=== PATIENT | male | born 1965 | race Caucasian/White ===

== ENCOUNTER → 2017-12-19 14:59 | Outpatient (CLI) | payer OTHER, SELFPAY ==
[2017-12-19 18:00] LABS: Hematocrit 40.9 % (40-54); Mean Corp Hgb Conc 34.2 g/gl (32-36); Mean Corpuscular Hgb 32.2 pg (27.0-32.0); Mean Platelet Vol. 10.4 fl (6.2-12.0); Platelet Count 210 K/mm3 (150-450); RBC Distribution Width CV 11.9 % (11.6-14.6); RBC Distribution Width SD 40.3 fl (35.1-43.9); Red Blood Count 4.35 M/mm3 (4.6-6.2); White Blood Count 6.1 K/mm3 (4.4-11.0)
[2017-12-19 18:05] LABS: Scan Indicated on CBC? Y/N NO
[2017-12-19 18:21] LABS: Vitamin B12 296 pg/mL (211-911)
[2017-12-22 03:07] LABS: QNTFERON TB Ag Minus Nil Value < 0 IU/mL (.); QNTFERON TB Ag Value 0.07 IU/mL (.); QNTFERON TB Mitogen Value > 10.00 IU/mL (.); QNTFERON TB Nil Value 0.08 IU/mL (.)
[2017-12-22 13:40] LABS: QNTIFERON TB Gold Negative (Negative)
== END ==
PROVIDERS: Family Provider Student in an Organized Health Care Education/Training Program; PCP Student in an Organized Health Care Education/Training Program; Visit Provider Internal Medicine Gastroenterology
DX: K50.90 Crohn's disease, unspecified, without complications (principal); Z79.899 Other long term (current) drug therapy
CPT/HCPCS: 36415; 82607; 85027; 86140; 86480

== ENCOUNTER → 2018-09-01 13:56 | Outpatient (CLI) | payer OTHER, SELFPAY ==
[2018-09-01 18:07] LABS: Hematocrit 44.7 % (40-54); Hemoglobin 14.7 g/dl (13.0-16.5); Mean Corp Hgb Conc 32.9 g/gl (32-36); Mean Corpuscular Hgb 30.6 pg (27.0-32.0); Mean Corpuscular Volume 92.9 fL (80-94); Mean Platelet Vol. 10.6 fl (6.2-12.0); Platelet Count 274 K/mm3 (150-450); RBC Distribution Width CV 12.6 % (11.6-14.6); RBC Distribution Width SD 42.5 fl (35.1-43.9); Red Blood Count 4.81 M/mm3 (4.6-6.2); White Blood Count 6.5 K/mm3 (4.4-11.0)
[2018-09-01 18:08] LABS: Scan Indicated on CBC? Y/N NO
[2018-09-01 18:54] LABS: BUN 19 mg/dL (7-18); Creatinine, Serum 1.16 mg/dL (0.70-1.30); Glucose 82 mg/dL (74-106)
[2018-09-01 18:55] LABS: AST(SGOT) 24 U/L (15-37); Alanine Aminotransfer ALT/SGPT 74 U/L (16-61); Albumin, Serum 3.2 g/dL (3.2-5.0); Alkaline Phosphatase 69 U/L (45-117); Anion Gap 5 (5-15); BUN/Creat Ratio 16.4 RATIO (10-20); CRP < 2.90 mg/L (0.0-3.0); Calcium,Total 8.7 mg/dL (8.5-10.1); Chloride 109 mmol/L (98-107); EST Glomerular Filtration Rate 71 mL/min (>60); Est Glom Filt Rate - Afr Amer 85 mL/min (>60); Globulin 3.1 g/dL (2.2-4.2); Potassium 3.9 mmol/L (3.5-5.1); Protein, Total 6.3 g/dL (6.4-8.2); Sodium Level 143 mmol/L (136-145)
== END ==
PROVIDERS: Family Provider Student in an Organized Health Care Education/Training Program; PCP Student in an Organized Health Care Education/Training Program; Referring Provider Internal Medicine Gastroenterology; Visit Provider Internal Medicine Gastroenterology
DX: K50.90 Crohn's disease, unspecified, without complications (principal)
CPT/HCPCS: 36415; 80053; 85027; 86140

== ENCOUNTER 2020-04-24 06:39 | Emergency (ER) | payer BC, SELFPAY ==
[2020-04-24 06:40] VITALS: BP 132/88; PULSE 66; RESP 16; TEMP 36.4; O2SAT 100; BMI 25.4
--- NOTE | 2020-04-24 07:20 | CT_ITS ---
STUDY: CT ABDOMEN AND PELVIS WITHOUT CONTRAST REASON FOR EXAM: Male, 54 years old. RT FLANK PAIN SINCE THIS AM, HX-CROHNS RADIATION DOSAGE (If Supplied By Facility): CTDIvol = ( 6.86 ) mGy, DLP = ( 342.89 ) mGycm TECHNIQUE: Transaxial images were obtained from the dome of the diaphragm to the symphysis pubis without oral contrast, and without intravenous contrast. Sagittal and coronal images were reconstructed. Individualized dose optimization techniques were used for this CT. COMPARISON: None. FINDINGS: The visualized lung bases are unremarkable. The visualized portions of the heart are within normal limits. Normal liver. Normal gallbladder and extrahepatic biliary system. Normal spleen. Normal pancreas. Normal bilateral adrenal glands. There is a 2 mm calcification at the superior pole of the right kidney there is mild hydroureteronephrosis. There is 4 mm calcification at the UVJ (axial image #151 series 2) There is 1 cm hypodense nodule at the superior pole of the left kidney. Normal visualized stomach. Normal small intestine. There are multiple colonic diverticula consistent with diverticulosis. There are surgical sutures at the cecum Normal abdominal aorta. Normal inferior vena cava. Normal retroperitoneum. Normal urinary bladder. Normal abdominal wall. Normal osseous structures. CT/Abdomen/Pelvis without Cont IMPRESSION: 4 mm right UVJ calculus with mild hydronephrosis. 1 cm left kidney nodule. Neoplastic disease is not excluded. Comparison with prior examinations if available or further evaluation with sonography is recommended. Electronically Signed: Bruno Enrique MD at 8:14 EDT Tel , Service support ,
--- NOTE | 2020-04-24 07:26 | ED.VIS.GEN ---
History of Present Illness Chief Complaint: Flank Pain Informant: Patient Onset: Hours Current Severity: Mild Narrative: History of Crohn's disease very stable went to bed feeling fine at 330 this morning developed sudden onset of pain to the right flank radiates slightly to the right side of the abdomen, he has had no vomiting no fever normal bowel bladder habits slight nausea he has had this before related to kidney stones, the past spontaneously, his Crohn's this is been very stable no diarrhea or blood no trauma no other issues Past Medical History - Allergies and Home Meds Allergies/Adverse Reactions: Allergies cefadroxil [From Duricef] Allergy (Verified 04/24/20 06:44) Hives Penicillins Allergy (Verified 04/24/20 06:44) Hives Sulfa (Sulfonamide Antibiotics) Allergy (Verified 04/24/20 06:44) Hives sulfasalazine [From Azulfidine] Allergy (Verified 04/24/20 06:44) Hives Primary Care Physician: Pedro Lee DO [Primary Care Provider] - Past Medical History: - Smoking Status: Light Smoker (<10/day) Review of Systems ROS: - 's disease and kidney stones General: Denies: Chills, Fever, Sweats Eyes: Denies: Visual changes - bilaterally, Diplopia ENT: Denies: Rhinorrhea, Sore throat Cardiovascular: Denies: Chest pain, Palpitations Respiratory: Denies: Dyspnea, Cough, Dyspnea on exertion Gastrointestinal: Reports: -. Denies: Abdominal pain, Nausea, Vomiting, Diarrhea, Melena, Hematochezia Genitourinary: Denies: Dysuria, Hematuria, Frequency Musculoskeletal: Reports: Back pain. Denies: Extremity Pain Skin: Denies: Rash, Wounds Neurological: Denies: Headache, Weakness, Numbness Physical Exam Vital Signs/Narrative: Vital Signs Temp Pulse Resp BP Pulse Ox 04/24/20 06:40 97.6 F L 66 16 132/88 H 100 General: Well nourished, Well developed, No Acute Distress Head: Normocephalic, Atraumatic Eyes: Perrl, EOMI ENT: Moist mucous membranes, No rhinorrhea Neck: Supple, Nontender Cardiovascular: Regular rate, Regular rhythm, No murmurs Respiratory: No distress, CTA bilaterally, Chest nontender Abdomen: Soft, Nontender, Nondistended, Normal bowel sounds Back: Nontender, Normal Inspection, CVA tenderness Extremities: Nontender, No edema Skin: Normal color, No rash Neurological: Alert, Oriented x3, Cranial nerves II-XII grossly intact, Normal Strength, Normal Sensation Psychological: Normal affect, Normal Mood Diagnostic/Tx/Re-eval - Medical Decision Making Patient is walking around the room holding his right upper back is midline backs unremarkable the abdomen soft nontender upper and lower extremities unremarkable he is in no distress except for the above given all the above ED screen evaluation CT pain management ED screening evaluation is generally unremarkable see those results, the UA is pending, on reevaluation he is much improved, his CT scan shows 4 mm obstructing stone with hydronephrosis 1 left renal nodule etiology of that is unclear see that report will need follow-up He is comfortable with discharge home Naprosyn Flomax Campbell as rescue medicine and follow-up with [facility] for all of the above and return for change in symptoms Home stable Right flank pain related to obstructing right renal kidney stone hydronephrosis ED Disposition - Plan for ED Patient: Diagnosis: Renal colic Instructions: ED Renal Stone w Colic Prescriptions: Tamsulosin HCl [Flomax] 0.4 mg PO DAILY #7 cap Prescription Printed Naproxen [Naprosyn] 500 mg PO BID PRN #20 tab Prescription Printed Hydrocodone Bitart/Apap 5-325 [Campbell 5MG-325MG] 1 tab PO Q4H PRN PRN 2 Days #10 tab PRN Reason: Pain Prescription Printed Referrals: Pedro Lee DO [Primary Care Provider] -
[2020-04-24 07:31] LABS: Absolute Lymphocyte Count 1.37 X10^3/uL (0.83-4.51); Absolute Neutrophil Count 12.1 X10^3/uL (2.0-7.7); Basophil# 0.03 X10^3/uL; Basophil% 0.2 % (0-1); Eosinophil# 0.06 X10^3/uL; Eosinophils% 0.4 % (0-5); Hematocrit 45.5 % (40-54); Hemoglobin 14.8 g/dL (13.0-16.5); Lymphocyte # 1.37 X10^3/ul (4.0); Lymphocyte % 9.8 % (19-41); Mean Corp Hgb Conc 32.5 g/dL (32-36); Mean Corpuscular Hgb 30.2 pg (27.0-32.0); Mean Corpuscular Volume 92.9 fL (80-94); Mean Platelet Vol. 10.7 fl (6.2-12.0); Monocyte# 0.37 X10^3/uL; Monocyte% 2.6 % (0-10); NRBC Flagged by Analyzer 0 % (0-5); Neutrophil # 12.11 X10^3/uL (2.7-7.7); Neutrophil % 86.6 % (47-70); Platelet Count 316 K/mm3 (150-450); RBC Distribution Width CV 12.9 % (11.6-14.6)
[2020-04-24] MEDS: Ondansetron 4 MG/2 ML Vial IV (07:32)
[2020-04-24] MEDS: morphine 8 MG/ML Syringe IV (07:32)
[2020-04-24] MEDS: 0.9% Normal Saline 1,000 ML 250 ML IV (07:32)
[2020-04-24] MEDS: Ketorolac 30 MG/ML Syringe IV (07:32)
[2020-04-24 07:36] LABS: Anion Gap 7 (5-15); BUN 16 mg/dL (7-18); Calcium,Total 8.5 mg/dL (8.5-10.1); Chloride 111 mmol/L (98-107); Creatinine, Serum 1.45 mg/dL (0.70-1.30); EST Glomerular Filtration Rate 54 mL/min (>60); Est Glom Filt Rate - Afr Amer 66 mL/min (>60); Estimated Creatinine Clearance 57.66 ml/min; Glucose 135 mg/dL (74-106); Potassium 3.5 mmol/L (3.5-5.1); Sodium Level 145 mmol/L (136-145)
== END 2020-04-24 09:05 | disposition home or self-care (01) ==
PROVIDERS: Emergency Provider Emergency Medicine; PCP Student in an Organized Health Care Education/Training Program
DX: N13.2 Hydronephrosis with renal and ureteral calculous obstruction (principal); K50.90 Crohn's disease, unspecified, without complications; F17.200 Nicotine dependence, unspecified, uncomplicated; Z79.899 Other long term (current) drug therapy; Z88.2 Allergy status to sulfonamides; Z88.0 Allergy status to penicillin; Z88.1 Allergy status to other antibiotic agents; Z87.442 Personal history of urinary calculi
CPT/HCPCS: 74176; 80048; 85025; 96361; 96374; 96375; 99285; J7030; A4216; J2405

== ENCOUNTER → 2021-02-04 11:42 | Outpatient (CLI) | payer BC, SELFPAY ==
[2021-02-04 15:16] LABS: Erythrocyte Sedimentation Rate < 1 mm/hr (0-20)
[2021-02-04 15:21] LABS: Hematocrit 38.7 % (40-54); Mean Corp Hgb Conc 33.6 g/dL (32-36); Mean Corpuscular Hgb 30.4 pg (27.0-32.0); Mean Corpuscular Volume 90.4 fL (80-94); Mean Platelet Vol. 10.5 fl (6.2-12.0); Platelet Count 339 K/mm3 (150-450); RBC Distribution Width CV 14.4 % (11.6-14.6); RBC Distribution Width SD 46.5 fl (35.1-43.9); Red Blood Count 4.28 M/mm3 (4.6-6.2); White Blood Count 8.4 K/mm3 (4.4-11.0)
[2021-02-04 15:44] LABS: ALB/GLOB Ratio 1.1 RATIO (0.9-2.4); AST(SGOT) 29 U/L (15-37); Alanine Aminotransfer ALT/SGPT 48 U/L (16-61); Albumin, Serum 3.4 g/dL (3.2-5.0); Alkaline Phosphatase 58 U/L (45-117); Anion Gap 5 (5-15); BUN 14 mg/dL (7-18); BUN/Creat Ratio 15.6 RATIO (10-20); CRP < 2.90 mg/L (0.0-3.0); Calcium,Total 8.5 mg/dL (8.5-10.1); Chloride 112 mmol/L (98-107); EST Glomerular Filtration Rate 94 mL/min (>60); Est Glom Filt Rate - Afr Amer 113 mL/min (>60); Glucose 84 mg/dL (74-106); Potassium 3.6 mmol/L (3.5-5.1); Protein, Total 6.4 g/dL (6.4-8.2); Sodium Level 145 mmol/L (136-145)
[2021-02-05 08:42] LABS: Hepatitis B Surface Antigen Non-Reactive (Nonreactive)
[2021-02-07 04:06] LABS: QNTFERON TB Mitogen Value > 10.00 IU/mL (.); QNTFERON TB Nil Value 0.54 IU/mL (.); QNTFERON TB1+ Ag Value 0.61 IU/mL (.); QNTFERON TB2+ Ag Value 0.52 IU/mL (.)
[2021-02-07 12:08] LABS: QNTIFERON TB Positive Criteria Negative (Negative)
== END ==
PROVIDERS: PCP Student in an Organized Health Care Education/Training Program; Referring Provider Internal Medicine Gastroenterology; Visit Provider Internal Medicine Gastroenterology
DX: K50.90 Crohn's disease, unspecified, without complications (principal)
CPT/HCPCS: 36415; 80053; 85027; 85652; 86140; 86480; 87340